=== PATIENT | female | born 1980 | race Caucasian/White ===

== ENCOUNTER 2023-04-03 16:56 | Inpatient (IN) | payer OTHER ==
[2023-04-03 19:55] VITALS: BMI 18.4
[2023-04-03] MEDS ORDERED: MAGNESIUM HYDROX 2400MG/30ML ORAL SUSPENSION 30 ML CUP PO PRN (21:38)
[2023-04-03] MEDS ORDERED: ONDANSETRON *ODT* 4 MG TABLET SL PRN (21:38)
[2023-04-03] MEDS ORDERED: LOPERAMIDE HCL 2 MG CAPSULE PO PRN (21:38)
[2023-04-03] MEDS ORDERED: guaiFENesin 600 MG TABLET.ER (FP) PO PRN (21:38)
[2023-04-03] MEDS ORDERED: IBUPROFEN 400 MG TABLET (FP) PO PRN (21:38)
[2023-04-03] MEDS ORDERED: IBUPROFEN 600 MG TABLET (FP) PO PRN (21:38)
[2023-04-03] MEDS ORDERED: MAG HYDROX/AL HYDROX/SIMETH 30 ML UNIT-DOSE CUP PO PRN (21:38)
[2023-04-03] MEDS ORDERED: POLYETHYLENE GLYCOL (HEALTHYLAX) 3350 17 GM PACKET PO PRN (21:38)
[2023-04-03] MEDS ORDERED: DICYCLOMINE HCL 10 MG CAPSULE PO PRN (21:38)
[2023-04-03] MEDS ORDERED: NICOTINE POLACRILEX 2 MG GUM BUC PRN (21:38)
[2023-04-03] MEDS ORDERED: NALOXONE HCL 0.4 MG/ML VIAL IM PRN (21:38)
[2023-04-03] MEDS ORDERED: BISMUTH SUBSALICYLATE 524 MG/30 ML PO PRN (21:38)
[2023-04-03] MEDS ORDERED: NALOXONE HCL (KLOXXADO) 8 MG SPRAY NS PRN (21:38)
[2023-04-03] MEDS ORDERED: BENZONATATE 200 MG CAPSULE PO PRN (21:38)
[2023-04-03] MEDS ORDERED: BENZOCAINE/MENTHOL (CHLORASEPTIC ) LOZENGE MM PRN (21:38)
[2023-04-03] MEDS ORDERED: ACETAMINOPHEN 325 MG TABLET (FP) PO PRN (21:38)
[2023-04-03] MEDS ORDERED: diazePAM 5 MG TABLET PO PRN (21:47)
[2023-04-03] MEDS: THIAMINE HCL 100 MG TABLET (FP) PO SCH (23:48)
[2023-04-03] MEDS: MELATONIN 5 MG TABLETS PO SCH (23:48)
[2023-04-04 08:54] LABS: POTASSIUM 3.8 mmol/L (3.5-5.1)
[2023-04-04 08:59] LABS: HEMOGLOBIN 12.5 GM/dL (10.7-15.3); MCH 29.1 pg (25.7-33.7); MCHC 33.9 g/dl (32.0-36.0); MEAN CELL VOLUME 85.7 fl (80-96); MEAN PLT VOLUME 6.9 fl (7.5-11.1); PLATELET COUNT 335 10^3/uL (134-434); RBC 4.32 M/mm3 (3.60-5.2); RDW 14.9 % (11.6-15.6); WHITE BLOOD COUNT 7.1 K/mm3 (4.0-10.0)
[2023-04-04 09:02] LABS: BLOOD UREA NITROGEN 11.5 mg/dL (7-18); CALCIUM 9.2 mg/dL (8.5-10.1)
[2023-04-04 09:04] LABS: CREATININE 0.6 mg/dL (0.55-1.3)
[2023-04-04 09:06] LABS: BILIRUBIN,TOTAL 0.2 mg/dL (0.2-1); TOT PROT 7.2 g/dl (6.4-8.2)
[2023-04-04] MEDS ORDERED: cloNIDine HCL 0.1 MG TABLET PO ONE (09:32)
[2023-04-04] MEDS ORDERED: BUPRENORPHINE HCL 150 MCG, BUPRENORPHINE HCL 75 MCG BC ONE (09:32)
[2023-04-04] MEDS ORDERED: BUPRENORPHINE HCL 150 MCG, BUPRENORPHINE HCL 75 MCG BC PRN (09:32)
[2023-04-04] MEDS: PRENATAL VITAMINS W/ FOLIC ACID TABLET (FP) PO SCH (09:56)
[2023-04-04] MEDS: NICOTINE 14 MG/24 HOURS TOPICAL PATCH TD SCH (09:56)
[2023-04-04] MEDS: diazePAM 5 MG TABLET PO PRN (22:21)
[2023-04-04] MEDS: MELATONIN 5 MG TABLETS PO SCH (22:22)
[2023-04-04] MEDS: cloNIDine HCL 0.1 MG TABLET PO PRN (22:22)
[2023-04-04] MEDS: THIAMINE HCL 100 MG TABLET (FP) PO SCH (22:22)
[2023-04-05] MEDS ORDERED: BUPRENORPHINE HCL 150 MCG, BUPRENORPHINE HCL 75 MCG BC PRN
[2023-04-05] MEDS ORDERED: BUPRENORPHINE HCL 150 MCG FILM BC ONE (05:12)
[2023-04-05] MEDS: BUPRENORPHINE HCL 150 MCG, BUPRENORPHINE HCL 75 MCG BC SCH ×2 (06:33→17:48)
[2023-04-05] MEDS: NICOTINE 14 MG/24 HOURS TOPICAL PATCH TD SCH (10:21)
[2023-04-05] MEDS: PRENATAL VITAMINS W/ FOLIC ACID TABLET (FP) PO SCH (10:21)
[2023-04-05] MEDS: hydrOXYzine PAMOATE 25 MG CAPSULE (FP) PO PRN (10:21)
[2023-04-05] MEDS: diazePAM 5 MG TABLET PO PRN ×2 (15:07→22:11)
[2023-04-05] MEDS: THIAMINE HCL 100 MG TABLET (FP) PO SCH (22:11)
[2023-04-05] MEDS: MELATONIN 5 MG TABLETS PO SCH (22:11)
[2023-04-05] MEDS: METHOCARBAMOL 500 MG TABLET PO PRN (22:11)
[2023-04-06] MEDS: BUPRENORPHINE HCL 450 MCG FILM BC SCH ×2 (06:00→17:49)
[2023-04-06] MEDS: NICOTINE 14 MG/24 HOURS TOPICAL PATCH TD SCH (09:16)
[2023-04-06] MEDS: PRENATAL VITAMINS W/ FOLIC ACID TABLET (FP) PO SCH (09:16)
[2023-04-06] MEDS: diazePAM 5 MG TABLET PO PRN ×2 (09:18→18:28)
[2023-04-06] MEDS: hydrOXYzine PAMOATE 25 MG CAPSULE (FP) PO PRN (09:19)
[2023-04-06] MEDS ORDERED: BUPRENORPHINE HCL 450 MCG FILM BC ONE (13:45)
[2023-04-06] MEDS: MELATONIN 5 MG TABLETS PO SCH (22:24)
[2023-04-06] MEDS: THIAMINE HCL 100 MG TABLET (FP) PO SCH (22:24)
[2023-04-06] MEDS: METHOCARBAMOL 500 MG TABLET PO PRN (22:24)
[2023-04-06] MEDS: GABAPENTIN 300 MG CAPSULE PO SCH (22:24)
[2023-04-07] MEDS: GABAPENTIN 300 MG CAPSULE PO SCH ×3 (05:26→22:04)
[2023-04-07] MEDS: BUPRENORPHINE/NALOXONE 4 MG/1 MG FILM PACKET SL SCH ×2 (05:29→17:23)
[2023-04-07] MEDS: cloNIDine HCL 0.1 MG TABLET PO PRN (07:11)
[2023-04-07] MEDS: hydrOXYzine PAMOATE 25 MG CAPSULE (FP) PO PRN ×2 (07:11→22:04)
[2023-04-07 08:59] VITALS: RESP 18
[2023-04-07] MEDS: PRENATAL VITAMINS W/ FOLIC ACID TABLET (FP) PO SCH (10:07)
[2023-04-07] MEDS: METHOCARBAMOL 500 MG TABLET PO PRN (10:07)
[2023-04-07] MEDS: NICOTINE 14 MG/24 HOURS TOPICAL PATCH TD SCH (10:08)
[2023-04-07] MEDS: THIAMINE HCL 100 MG TABLET (FP) PO SCH (22:04)
[2023-04-07] MEDS: MELATONIN 5 MG TABLETS PO SCH (22:04)
[2023-04-08] MEDS ORDERED: BUPRENORPHINE/NALOXONE 8 MG/2 MG FILM PACKET SL ONE (06:00)
[2023-04-08] MEDS: GABAPENTIN 300 MG CAPSULE PO SCH (06:06)
[2023-04-08 09:06] VITALS: BP 122/73; PULSE 68; TEMP 96.9
== END 2023-04-08 10:03 | disposition home or self-care (01) | DRG 773 ==
LOC: YASAS 16:56 → Y3N 23:14
PROVIDERS: ADMIT Allergy & Immunology; ATTEND Surgery
PROC: HZ2ZZZZ Detoxification Services for Substance Abuse Treatment (ICD-10-PCS; principal; 2023-04-03)
DX: F11.23 Opioid dependence with withdrawal (principal); F14.20 Cocaine dependence, uncomplicated; F17.210 Nicotine dependence, cigarettes, uncomplicated; I10 Essential (primary) hypertension; M54.6 Pain in thoracic spine; G89.29 Other chronic pain; Z87.42 Personal history of other diseases of the female genital tract; Z28.310 Unvaccinated for COVID-19; Z28.9 Immunization not carried out for unspecified reason
CPT/HCPCS: 36415; 80053; 81025; 85027; 86780; 87635